=== PATIENT | female | born 1990 | race Caucasian/White ===

== ENCOUNTER 2019-01-12 22:38 | Emergency (ER) | payer SELFPAY ==
--- NOTE | 2019-01-12 22:57 | EDM.PDOC ---
ED HPI GENERAL MEDICAL PROBLEM - General Chief Complaint: Fever Stated Complaint: FEVER Time Seen by Provider: 01/12/19 22:55 - History of Present Illness INITIAL COMMENTS - FREE TEXT/NARRATIVE: 28-year-old female who's been ill for 4 days. She's developed fevers and has been very sweaty she's been achy all over unsteady on her feet has been drinking little. Really cannot isolate what hurts she has a cough that's dry hacking and irritating. She has what sounds like chronic headaches these are perhaps a little worse during this illness. She's not having any localizing pain. She's been nauseated somewhat no vomiting no diarrhea no constipation urine output has diminished however she's not drinking very much. No significant past medical history. She's had a tubal ligation Treatments DISABILITIES CAREGIVER: Reports: Acetaminophen - Related Data Allergies Allergy/AdvReac Type Severity Reaction Status Date / Time No Known Allergies Allergy Verified 01/12/19 22:52 Home Meds: Home Meds Doxycycline [Vibramycin] 100 mg PO DAILY #19 tab 01/13/19 [Rx] Social & Family History - Tobacco Use Smoking Status *Q: Current Some Day Smoker Years of Tobacco use: 5 Packs/Tins Daily: 0.2 - Caffeine Use Caffeine Use: Reports: Coffee - Recreational Drug Use Recreational Drug Use: Yes ED ROS GENERAL - Review of Systems Review Of Systems: See Below Constitutional: Reports: Fever, Chills HEENT: Reports: Rhinitis Respiratory: Reports: Cough. Denies: Shortness of Breath, Wheezing, Pleuritic Chest Pain, Sputum, Hemoptysis Cardiovascular: Reports: No Symptoms Endocrine: Reports: No Symptoms GI/Abdominal: Reports: Nausea. Denies: Abdominal Pain, Constipation, Diarrhea, Distension, Vomiting : Reports: No Symptoms Musculoskeletal: Reports: Other (Achy all over) Skin: Reports: No Symptoms Neurological: Reports: No Symptoms Psychiatric: Reports: No Symptoms ED EXAM, GENERAL - Physical Exam Exam: See Below Exam Limited By: No Limitations General Appearance: Alert, No Apparent Distress Eye Exam: Bilateral Eye: Normal Inspection, PERRL Ears: Normal External Exam, Normal Canal, Hearing Grossly Normal, Normal TMs Nose: Normal Inspection, Normal Mucosa, No Blood Throat/Mouth: Normal Inspection, Normal Lips, Normal Teeth, Normal Gums, Normal Oropharynx, Normal Voice, No Airway Compromise Head: Atraumatic, Normocephalic Neck: Normal Inspection, Supple, Non-Tender, Full Range of Motion, Other (No nuchal rigidity). No: Lymphadenopathy (L), Lymphadenopathy (R), Tender Lateral , Tender Midline, Thyromegaly Respiratory/Chest: No Respiratory Distress, Lungs Clear, Normal Breath Sounds Cardiovascular: Regular Rate, Rhythm, No Edema, No Murmur GI/Abdominal: Normal Bowel Sounds, Soft. No: Non-Tender, Guarding, Rigid, Rebound Back Exam: Normal Inspection. No: CVA Tenderness (L), CVA Tenderness (R), Vertebral Tenderness Extremities: Normal Inspection, Normal Range of Motion, Non-Tender, No Pedal Edema Course - Vital Signs Last Recorded V/S: Last Vital Signs Temp 36.4 C 01/12/19 22:48 Pulse 96 01/12/19 22:48 Resp 18 01/12/19 22:48 BP 126/73 01/12/19 22:48 Pulse Ox 98 01/12/19 22:48 - Orders/Labs/Meds Orders: Active Orders 24 hr Category Date Time Status Chest 2V [CR] Stat Exams 01/13/19 00:28 Ordered Labs: Laboratory Tests 01/12/19 01/12/19 01/12/19 Range/Units 23:22 23:25 23:25 WBC 6.43 (3.98-10.04) K/mm3 RBC 5.09 (3.98-5.22) M/mm3 Hgb 15.7 (11.2-15.7) gm/L Hct 46.5 H (34.1-44.9) % MCV 91.4 (79.4-94.8) fl MCH 30.8 (25.6-32.2) pg MCHC 33.8 (32.2-35.5) g/dl RDW Std Deviation 41.9 (36.4-46.3) fL Plt Count 201 (182-369) K/mm3 MPV 9.8 (9.4-12.3) fl Neutrophils % (Manual) 56 (40-60) % Band Neutrophils % 6 (0-10) % Lymphocytes % (Manual) 27 (20-40) % Atypical Lymphs % 0 % Monocytes % (Manual) 10 (2-10) % Eosinophils % (Manual) 0 L (0.7-5.8) % Basophils % (Manual) 1 (0.1-1.2) Platelet Estimate Adequate Plt Morphology Comment Normal RBC Morph Comment Normal Sodium 137 (136-145) mEq/L Potassium 3.4 L (3.5-5.1) mEq/L Chloride 100 (98-107) mEq/L Carbon Dioxide 25 (21-32) mEq/L Anion Gap 15.4 H (5-15) BUN 9 (7-18) mg/dL Creatinine 0.8 (0.55-1.02) mg/dL Est Cr Clr Drug Dosing 106.76 mL/min Estimated GFR (MDRD) > 60 (>60) mL/min BUN/Creatinine Ratio 11.3 L (14-18) Glucose 91 (74-106) mg/dL Calcium 9.2 (8.5-10.1) mg/dL Total Bilirubin 0.3 (0.2-1.0) mg/dL AST 53 H (15-37) U/L ALT 73 H (14-59) U/L Alkaline Phosphatase 62 (46-116) U/L Total Protein 8.1 (6.4-8.2) g/dl Albumin 3.9 (3.4-5.0) g/dl Globulin 4.2 gm/dL Albumin/Globulin Ratio 0.9 L (1-2) Urine Color Yellow (Yellow) Urine Appearance Cloudy H (Clear) Urine pH 6.0 (5.0-8.0) Ur Specific [place] 1.015 (1.005-1.030) Urine Protein 1+ H (Negative) Urine Glucose (UA) Negative (Negative) Urine Ketones Trace H (Negative) Urine Occult Blood 3+ H (Negative) Urine Nitrite Negative (Negative) Urine Bilirubin 1+ H (Negative) Urine Urobilinogen 0.2 (0.2-1.0) Ur Leukocyte Esterase Negative (Negative) Urine RBC 5-10 H (0-5) /hpf Urine WBC 0-5 (0-5) /hpf Ur Squamous Epith Cells 0-5 (0-5) /hpf Urine Bacteria Few (FEW) /hpf Urine Mucus Many H (FEW) /hpf Meds: Medications Discontinued Medications Generic Name Dose Route Start Last Admin Trade Name Freq PRN Reason Stop Dose Admin Doxycycline Hyclate 100 mg 01/13/19 00:59 01/13/19 01:05 Vibramycin PO 01/13/19 01:00 100 mg ONETIME ONE Administration Lactated Ringer's 1,000 mls @ 999 mls/hr 01/12/19 23:11 01/12/19 23:26 Ringers, Lactated IV 01/13/19 00:11 999 mls/hr .BOLUS ONE Administration Potassium Chloride 40 meq 01/13/19 00:31 01/13/19 00:37 Klor-Con M20 PO 01/13/19 00:32 40 meq ONETIME ONE Administration - Re-Assessments/Exams Free Text/Narrative Re-Assessment/Exam: 01/13/19 00:55 Patient is doing much better after getting fluids . Her potassium was low she received 40 mEq of oral potassium and has been able to keep this down she's taking oral fluids without difficulty 01/13/19 00:58 She did have a moist sounding cough here and we did check a chest x-ray which shows a right lower lobe infiltrate developing 01/13/19 01:08 Departure - Departure Time of Disposition: 01:09 Disposition: Home, Self-Care 01 Clinical Impression: Pneumonia - Discharge Information Prescriptions: Doxycycline [Vibramycin] 100 mg PO DAILY #19 tab Referrals: PCP,None [Primary Care Provider] - Forms: ED Department Discharge Additional Instructions: Turn to the emergency room with any questions problems worsening symptoms. It is believed to developing a pneumonia which could easily explain your fevers. You been started on doxycycline this is an antibiotic he take twice a day use caution not to spend too much time out in the sun while taking this as a severe sunburn can develop. Follow-up with her regular provider at the end of this week for recheck. - My Orders Last 24 Hours: My Active Orders 01/13/19 00:28 Chest 2V [CR] Stat - Assessment/Plan Last 24 Hours: My Active Orders 01/13/19 00:28 Chest 2V [CR] Stat
[2019-01-12] MEDS ORDERED: Lactated Ringers 1,000 ML IV ONE (23:11)
[2019-01-13] MEDS ORDERED: Potassium Chloride 20 MEQ Tab.ER PO ONE (00:31)
[2019-01-13] MEDS ORDERED: Doxycycline 100 MG Cap PO ONE (00:59)
[2019-01-13] MEDS ORDERED: Ondansetron 4 MG Tab.DIS PO ONE (01:07)
--- NOTE | 2019-01-13 12:27 | CR ---
Chest: Two views of the chest are obtained. Comparison: No previous chest x-ray. Focal density is noted within the right lung base. Lungs otherwise are clear. Heart size and mediastinum are normal. Bony structures are unremarkable. Impression: 1. Focal density within the right base most likely representing pneumonia. Diagnostic code #3
== END 2019-01-13 01:21 | disposition home or self-care (01) ==
LOC: JD.ED 22:38
DX: J18.9 Pneumonia, unspecified organism (principal); F17.210 Nicotine dependence, cigarettes, uncomplicated
CPT/HCPCS: 36415; 71046; 80053; 81001; 85007; 85027; 96360; 99283; A9270; J7120

== ENCOUNTER 2019-05-18 07:21 | Emergency (ER) | payer SELFPAY ==
[2019-05-18] MEDS ORDERED: Sodium Chloride 0.9% 10 ML Syringe FLUSH PRN (07:49)
[2019-05-18] MEDS ORDERED: Ondansetron 4 MG/2 ML SDV IVPUSH ONE (07:50)
[2019-05-18] MEDS ORDERED: HYDROmorphone 0.5 MG/0.5 ML Syringe IVPUSH ONE ×3 (07:50→09:16)
[2019-05-18] MEDS ORDERED: Sodium Chloride 0.9% 1,000 ML IV SCH (08:00)
[2019-05-18] MEDS ORDERED: Metoclopramide 10 MG/2 ML SDV IVPUSH ONE (08:38)
--- NOTE | 2019-05-18 08:49 | EDM.PDOC ---
ED HPI GENERAL MEDICAL PROBLEM - General Chief Complaint: Abdominal Pain Stated Complaint: LOW ABDOMINAL AND BACK PAIN Time Seen by Provider: 05/18/19 07:42 Source of Information: Reports: Patient, RN Notes Reviewed - History of Present Illness INITIAL COMMENTS - FREE TEXT/NARRATIVE: 28-year-old female comes in with severe right lower abdominal and pelvic discomfort. She had fairly sudden onset of discomfort about 2 hours prior to arrival. She states the pain is in the right flank and right mid abdominal and right lower abdominal and pelvic area with some radiation to the back. The pain is sharp, it is shooting and very uncomfortable. Has had some nausea and vomiting. She felt fine yesterday and was feeling okay during the night until onset of symptoms about 2 hours ago. She is had no voiding burning or dysuria. Was a small amount of blood when she "wiped" she is not having diarrhea. No history of kidney stones. She does not think she is , history of tubal ligation. Abdominal Pain Score (Numeric/FACES): 10 Flank Pain Score (Numeric/FACES): 10 Lower Back Pain Score (Numeric/FACES): 10 - Related Data Allergies Allergy/AdvReac Type Severity Reaction Status Date / Time No Known Allergies Allergy Verified 05/18/19 07:35 Home Meds: Home Meds Acetaminophen/HYDROcodone [[place] 325-5 MG] 1 tab PO Q6H PRN #14 tablet 05/18/19 [Rx] Ondansetron [Zofran ODT] 4 mg PO Q8HR PRN #7 tab.dis 05/18/19 [Rx] Past Medical History - Past Surgical History Female Surgical History: Reports: Tubal Ligation Social & Family History - Caffeine Use Caffeine Use: Reports: Coffee Course - Vital Signs Last Recorded V/S: Last Vital Signs Temp 96.9 F 05/18/19 07:32 Pulse 83 05/18/19 07:32 Resp 18 05/18/19 07:32 BP 134/95 H 05/18/19 07:32 Pulse Ox 99 05/18/19 07:32 - Orders/Labs/Meds Orders: Active Orders 24 hr Category Date Time Status Peripheral IV Care [RC] . DIRECTED Care 05/18/19 07:50 Active Sodium Chloride 0.9% [Normal Saline] 1,000 ml Med 05/18/19 08:00 Active IV ONETIME Sodium Chloride 0.9% [Saline Flush] Med 05/18/19 07:49 Active 10 ml FLUSH ASDIRECTED PRN Peripheral IV Insertion Adult [OM.PC] Stat Oth 05/18/19 07:49 Ordered Medication Orders Sodium Chloride (Normal Saline) 1,000 mls @ 999 mls/hr IV ONETIME VILMA Last Admin: 05/18/19 07:55 Dose: 999 mls/hr Sodium Chloride (Saline Flush) 10 ml FLUSH ASDIRECTED PRN PRN Reason: Keep Vein Open Last Admin: 05/18/19 07:56 Dose: 10 ml Labs: Laboratory Tests 05/18/19 05/18/19 05/18/19 Range/Units 07:47 07:47 07:47 WBC 4.50 (3.98-10.04) K/mm3 RBC 4.75 (3.98-5.22) M/mm3 Hgb 14.7 (11.2-15.7) gm/dl Hct 43.5 (34.1-44.9) % MCV 91.6 (79.4-94.8) fl MCH 30.9 (25.6-32.2) pg MCHC 33.8 (32.2-35.5) g/dl RDW Std Deviation 40.6 (36.4-46.3) fL Plt Count 240 D (182-369) K/mm3 MPV 10.4 (9.4-12.3) fl Neutrophils % (Manual) 69 H (40-60) % Band Neutrophils % 0 (0-10) % Lymphocytes % (Manual) 25 (20-40) % Atypical Lymphs % 0 % Monocytes % (Manual) 5 (2-10) % Eosinophils % (Manual) 0 L (0.7-5.8) % Basophils % (Manual) 1 (0.1-1.2) Platelet Estimate Adequate RBC Morph Comment Normal Sodium 138 (136-145) mEq/L Potassium 3.4 L (3.5-5.1) mEq/L Chloride 104 (98-107) mEq/L Carbon Dioxide 26 (21-32) mEq/L Anion Gap 11.4 (5-15) BUN 13 (7-18) mg/dL Creatinine 0.8 (0.55-1.02) mg/dL Est Cr Clr Drug Dosing 110.44 mL/min Estimated GFR (MDRD) > 60 (>60) mL/min BUN/Creatinine Ratio 16.3 (14-18) Glucose 106 (74-106) mg/dL Calcium 9.0 (8.5-10.1) mg/dL Total Bilirubin 0.6 (0.2-1.0) mg/dL AST 139 H (15-37) U/L ALT 50 (14-59) U/L Alkaline Phosphatase 43 L (46-116) U/L C-Reactive Protein < 0.2 (<1.0) mg/dL Total Protein 7.0 (6.4-8.2) g/dl Albumin 3.9 (3.4-5.0) g/dl Globulin 3.1 gm/dL Albumin/Globulin Ratio 1.3 (1-2) HCG, Qual (NEGATIVE) 05/18/19 Range/Units 07:47 WBC (3.98-10.04) K/mm3 RBC (3.98-5.22) M/mm3 Hgb (11.2-15.7) gm/dl Hct (34.1-44.9) % MCV (79.4-94.8) fl MCH (25.6-32.2) pg MCHC (32.2-35.5) g/dl RDW Std Deviation (36.4-46.3) fL Plt Count (182-369) K/mm3 MPV (9.4-12.3) fl Neutrophils % (Manual) (40-60) % Band Neutrophils % (0-10) % Lymphocytes % (Manual) (20-40) % Atypical Lymphs % % Monocytes % (Manual) (2-10) % Eosinophils % (Manual) (0.7-5.8) % Basophils % (Manual) (0.1-1.2) Platelet Estimate RBC Morph Comment Sodium (136-145) mEq/L Potassium (3.5-5.1) mEq/L Chloride (98-107) mEq/L Carbon Dioxide (21-32) mEq/L Anion Gap (5-15) BUN (7-18) mg/dL Creatinine (0.55-1.02) mg/dL Est Cr Clr Drug Dosing mL/min Estimated GFR (MDRD) (>60) mL/min BUN/Creatinine Ratio (14-18) Glucose (74-106) mg/dL Calcium (8.5-10.1) mg/dL Total Bilirubin (0.2-1.0) mg/dL AST (15-37) U/L ALT (14-59) U/L Alkaline Phosphatase (46-116) U/L C-Reactive Protein (<1.0) mg/dL Total Protein (6.4-8.2) g/dl Albumin (3.4-5.0) g/dl Globulin gm/dL Albumin/Globulin Ratio (1-2) HCG, Qual Negative (NEGATIVE) Meds: Medications Generic Name Dose Route Start Last Admin Trade Name Freq PRN Reason Stop Dose Admin Sodium Chloride 1,000 mls @ 999 mls/hr 05/18/19 08:00 05/18/19 07:55 Normal Saline IV 999 mls/hr ONETIME VILMA Administration Sodium Chloride 10 ml 05/18/19 07:49 05/18/19 07:56 Saline Flush FLUSH 10 ml ASDIRECTED PRN Administration Keep Vein Open Discontinued Medications Generic Name Dose Route Start Last Admin Trade Name Freq PRN Reason Stop Dose Admin Hydromorphone HCl 0.5 mg 05/18/19 07:50 05/18/19 07:57 Dilaudid IVPUSH 05/18/19 07:51 0.5 mg ONETIME ONE Administration Hydromorphone HCl 0.5 mg 05/18/19 08:38 05/18/19 08:44 Dilaudid IVPUSH 05/18/19 08:39 0.5 mg ONETIME ONE Administration Hydromorphone HCl 0.5 mg 05/18/19 09:16 05/18/19 09:25 Dilaudid IVPUSH 05/18/19 09:17 0.5 mg ONETIME ONE Administration Ketorolac Tromethamine 30 mg 05/18/19 10:32 05/18/19 10:35 Toradol IVPUSH 05/18/19 10:33 30 mg ONETIME ONE Administration Metoclopramide HCl 5 mg 05/18/19 08:38 05/18/19 08:42 Reglan IVPUSH 05/18/19 08:39 5 mg ONETIME ONE Administration Ondansetron HCl 4 mg 05/18/19 07:50 05/18/19 07:55 Zofran IVPUSH 05/18/19 07:51 4 mg ONETIME ONE Administration - Re-Assessments/Exams Free Text/Narrative Re-Assessment/Exam: 05/18/19 11:54 Patient now doing much better but she presented with extremely severe's pain as noted not relieved with initial 2 doses of Dilaudid. Renal CT was ordered showing 1.5 mm stone at the UVJ junction with dilated ureter and hydronephrosis to go along with that. See radiology report for details. Now is almost completely gone. Possible she has passed the stone into her bladder. She is now ready for discharge, discharge instructions as documented. Departure - Departure Time of Disposition: 11:55 Disposition: Home, Self-Care 01 Condition: Fair Clinical Impression: Kidney stone, Ureteral calculus - Discharge Information Prescriptions: Ondansetron [Zofran ODT] 4 mg PO Q8HR PRN #7 tab.dis PRN Reason: Nausea/Vomiting Acetaminophen/HYDROcodone [[place] 325-5 MG] 1 tab PO Q6H PRN #14 tablet PRN Reason: Pain Referrals: PCP,None [Primary Care Provider] - Forms: ED Department Discharge Additional Instructions: Rest, strain urine to watch for stone, you can alternate Tylenol and ibuprofen for mild to moderate discomfort or take hydrocodone for more severe pain if needed, do not take Tylenol and hydrocodone at the same time. Do not drive when taking hydrocodone. Follow-up clinic if you do not pass the stone within 3-4 days as expected. Call [phone] for appointment. Return to ED as needed. - My Orders Last 24 Hours: My Active Orders 05/18/19 07:49 Sodium Chloride 0.9% [Saline Flush] 10 ml FLUSH ASDIRECTED PRN Peripheral IV Insertion Adult [OM.PC] Stat 05/18/19 07:50 Peripheral IV Care [RC] . DIRECTED 05/18/19 08:00 Sodium Chloride 0.9% [Normal Saline] 1,000 ml IV ONETIME - Assessment/Plan Last 24 Hours: My Active Orders 05/18/19 07:49 Sodium Chloride 0.9% [Saline Flush] 10 ml FLUSH ASDIRECTED PRN Peripheral IV Insertion Adult [OM.PC] Stat 05/18/19 07:50 Peripheral IV Care [RC] . DIRECTED 05/18/19 08:00 Sodium Chloride 0.9% [Normal Saline] 1,000 ml IV ONETIME
--- NOTE | 2019-05-18 09:44 | CT ---
CT abdomen and pelvis Technique: Multiple axial sections were obtained from above the dome of the diaphragm inferiorly through the pubic symphysis. Intravenous and oral contrast not utilized. Study performed as a ureteral stone protocol. Comparison: No prior abdominal imaging is available. Findings: Prominently dilated right ureter as well as right kidney collecting system is noted. Small calcification compatible with obstructing stone is noted within the right UVJ measuring about 1.5 mm. No other abnormal calcifications are appreciated within the ureters or within the kidneys. Visualized lung bases show nothing acute. Noncontrast appearance of the liver shows no discrete abnormality. Small hiatal hernia is noted. Spleen appears within normal limits. Adrenal glands show no nodule. Pancreas shows no discrete abnormality. Gallbladder contains no calcified gallstones. Aorta shows no aneurysm. No retroperitoneal adenopathy or mesenteric abnormalities are seen. Appendix is seen which is normal in size. No pelvic mass or adenopathy is seen. No free fluid is identified. Bone window settings were reviewed which appear within normal limits for the patient's age. Impression: 1. Prominently dilated collecting system of the right kidney as well as dilated right ureter. These findings are felt to be caused by a small 1.5 mm stone located within the right UVJ. 2. Small hiatal hernia with no additional abnormality being identified on noncontrast CT study of the abdomen and pelvis. Diagnostic code #3
[2019-05-18] MEDS ORDERED: Ketorolac 30 MG/ML SDV IVPUSH ONE (10:32)
== END 2019-05-18 12:13 | disposition home or self-care (01) ==
LOC: JD.ED 07:21
DX: N13.2 Hydronephrosis with renal and ureteral calculous obstruction (principal); Z98.51 Tubal ligation status
CPT/HCPCS: 36415; 74176; 80053; 84703; 85007; 85027; 86140; 96361; 96374; 96375; 96376; 99284; J1170; J1885; J2405; J2765; J7040